=== PATIENT | male | born 1960 | race Two or more races ===

== ENCOUNTER → 2017-02-28 | Day surgery (SDC) | payer BC ==
[~2017-02-28] MED LIST: AZIT500T PO; DEXT30SU19 PO; IV RINGERS,LACTATED 1000ML 1,000 ML IV SCH; LIDOCAINE 2% PF Vial for OR 5 ML VIAL. ONE; PROPOFOL 20 ML IV ONE
--- NOTE | 2017-02-28 10:21 | PDOC1 ---
HISTORY & PHYSICAL H&P Fili Menard [id number] 1960 02/14/2017 04:20 PM 05/01 PROTEM Zentyal [facility], [facility] OUR PATIENTS COME FIRST [address] [place] [address] Ph. [phone] Patient: Fili Menard Date of : 1960 Date: 02/14/2017 4:20 PM Visit Type: Consult This 56 year old male presents for Elevated liver chemistry and Screening colonoscopy. History of Present Illness: 1. Elevated liver chemistry Pertinent negatives include bleeding, joint pain, rash and weight loss. Additional information: Has significant issue with alcohol consumption. No prior hepatitis. No IV drug abuse. Takes Viagra at times.. 2. Screening colonoscopy No prior screening. Denies risk factors. Pertinent negatives include abdominal pain, change in bowel habits, change in stool caliber, constipation, decreased appetite, diarrhea, melena, nausea, rectal bleeding, vomiting, weight gain and weight loss. Additional information: No family history of colon cancer , No family history of Crohn's/colitis, No NSAID/ASA use and Never had prior colonoscopy. INTAKE COMMENTS: Intake Comments: Nurse Note: the pt is here today due to elevated LFT's and for a screening colonoscopy. PROBLEM LIST: No active problems PAST MEDICAL/SURGICAL HISTORY (Detailed) Disease/disorder Onset Date Management Date Comments knee surgery 2012 PCL, ACL surgery Allergies: Ingredient Reaction Medication Name Comment PENICILLINS Red eyes REVIEW OF SYSTEMS System Neg/Pos Details Constitutional Negative Chills, fever, malaise, weight gain and weight loss. ENMT Negative Sore throat. Eyes Negative Double vision. Respiratory Negative Dyspnea and wheezing. Cardio Negative Chest pain and irregular heartbeat/palpitations. GI Positive See HPI. GI Negative Abdominal pain, change in bowel habits, change in stool caliber, constipation, decreased appetite, diarrhea, melena, nausea, see HPI, rectal bleeding and vomiting. Negative Dysuria and hematuria. Endocrine Negative Cold intolerance and heat intolerance. Psych Negative Anxiety. Integumentary Negative Hives and rash. MS Negative Joint pain. Neel/Lymph Negative Easy bleeding and easy bruising. Allergic/Immuno Negative Food allergies. VITAL SIGNS Time BP mm/Hg Pulse /min Resp /min Temp F Ht ft Ht in Ht cm Wt lb Wt kg BMI kg/ m2 BSA m2 O2 Sat% 4:21 PM 108/82 84 97.6 5.0 7.50 171.45 222.40 100.879 34.32 98 Time Measured by 4:21 PM Davina Thomas PHYSICAL EXAM: Exam Findings Details Constitutional Normal Well developed. Eyes Normal Conjunctiva - Right: Normal, Left: Normal. Sclera - Right: Normal, Left: Normal. Nasopharynx Normal Lips/teeth/gums - Normal. Neck Exam Normal Inspection - Normal. Thyroid gland - Normal. Respiratory Normal Inspection - Normal. Auscultation - Normal. Cardiovascular Normal Regular rate and rhythm. No murmurs, gallops, or rubs. Vascular Normal Pulses - Carotids: Normal, Femoral: Normal, Dorsalis pedis: Normal. Abdomen Normal Inspection - Normal. Anterior palpation - No guarding. No abdominal tenderness. No hepatic enlargement. No splenic enlargement. No hernia. No ascites. Skin Normal Inspection - Normal. Extremity Normal No edema. Psychiatric * Oriented to time, place, person and situation. Psychiatric Normal Appropriate mood and effect. The patient was checked out at 5:00 PM by Daisy Cruz. Assessment/Plan # Detail Type Description 1. Assessment Abnormal results of liver function studies (R94.5). Patient Plan Abdominal sonogram. QING,AMA,ASA, Ceruloplasmin, Hepatitis profile, iron and % saturation. Plan Orders AMA/ Antimitochondrial Ab, QING Comprehensive today, ASA/ Smooth Muscle Ab today, Ceruloplasmin today, Hepatitis Profile Acute today and Iron And Iron Binding Capacity to be performed today. Further diagnostic evaluations ordered today include(s) Abdomen Ultrasound; Limited (e.g., single organ, quadrant, follow-up) to be performed today. 2. Assessment Encounter for screening colonoscopy (Z12.11). Patient Plan schedule colonoscopy Plan Orders Further diagnostic evaluations ordered today include(s) Colonoscopy to be performed today. He is to schedule a follow-up visit with Jean Carlos Crouch MD upon completion of work-up Electronically signed by: Jean Carlos Crouch MD 02/14/2017 05:02 PM Document generated by: Jean Carlos Crouch 02/14/2017 05:02 PM Rose Marie Youssef MD, Family Practice; Daniel Ghosh MD Internal Medicine; Rolando Winters MD, Internal Medicine; Melvin Crouch MD Internal Medicine; Jean Carlos Crouch MD, Gastroenterology; Leodan Mujica MD, Rheumatology, S. Fitzgerald Romeo, Physical Medicine/Rehab Sujit Garrido APRN ------ 02/28/17 Patient seen and examined. No change in H&P JEAN CARLOS CROUCH MD Feb 28, 2017 10:21
[2017-02-28 11:36] VITALS: BP 113/70
== END | disposition home or self-care (01) ==
LOC: ENDOS 09:17
PROVIDERS: ATTEND Internal Medicine Gastroenterology
DX: Z12.11 Encounter for screening for malignant neoplasm of colon (principal); K57.30 Diverticulosis of large intestine without perforation or abscess without bleeding; Z88.0 Allergy status to penicillin
CPT/HCPCS: 45378; J2704; J2001

== ENCOUNTER → 2019-01-11 | Outpatient (CLI) | payer BC ==
[2017-02-28 11:36] VITALS: BP 113/70
[~2019-01-11] MED LIST changes: -IV RINGERS,LACTATED 1000ML 1,000 ML IV SCH; -LIDOCAINE 2% PF Vial for OR 5 ML VIAL. ONE; -PROPOFOL 20 ML IV ONE
--- NOTE | 2019-01-11 15:38 | KCIC ---
ABDOMEN LTD History: Fatty liver, alcoholic Comparison: None. Findings: Multiple sonographic images of the abdomen are submitted. There is no abnormality of the visualized pancreas. There is diffuse coarsening of the hepatic echotexture. Right lobe of liver measured 17 cm longitudinal. Gallbladder is present without intraluminal abnormality, wall thickening, pericholecystic fluid. Common bile duct is within normal limits at 0.3 cm. Right kidney measured 11.6 x 6 x 5.2 cm, no hydronephrosis. Abdominal aortic caliber is within normal limits up to 2.5 cm. Impression: 1. There is diffuse coarsening of hepatic echotexture, most commonly due to steatosis. No other significant abnormality is demonstrated. Electronically signed by: Evan Cruz MD (01/11/2019 3:36 PM) [facility]
== END | disposition home or self-care (01) ==
LOC: KCIC US 08:40
PROVIDERS: ATTEND Internal Medicine
DX: K70.0 Alcoholic fatty liver (principal)
CPT/HCPCS: 76705

== ENCOUNTER → 2019-12-12 | Outpatient (CLI) | payer BC ==
[2017-02-28 11:36] VITALS: BP 113/70
--- NOTE | 2019-12-13 07:23 | RAD ---
MR#: [id number] Date of Study: 12/12/2019 Ordering Physician: ALEX BARILLAS, Referring Physician: SARA CRABTREE Tech: RT Gabriella (R) (N) APPROVED REPORT Test Type: Exercise Stress Nurse/Tech: Monae Saravia RN Test Indications: Chest/left ribcage area pain in the past Cardiac History: No known cardiac Medications: See Electronic Medical Record Medical History: See Electronic Medical Record Resting ECG: SR Resting Heart Rate: 66 bpm Resting Blood Pressure: 125/79mmHg Pretest Chest Pain: No chest pain Nurse/Tech Notes S1,S2 and lungs are clear to auscultation. Consent: The procedure was explained to the patient in lay terms. Informed consent was witnessed. Tonny eout was entered into [employer]. History and Stress Test performed by SHAHNAZ Murray, ARRT (R) (N) Stress Symptoms No chest pain or symptoms. POST EXERCISE Reason for Termination: Reached target heart rate Target HR: Yes Max HR: 201 bpm 144% of Maximum Predicted HR: 139 bpm Exercise duration: 7:40 min:sec, 3 Stage Exercise capacity: 10METs Max Blood Pressure: 149/86mmHg Blood Pressure response to exercise: Normal blood pressure response during stress. Heart Rate response to exercise: WNL Chest Pain: No. Arrhythmia: No. ST Change: No. INTERPRETATION Stress EKG Conclusion: Technically limited EKG due to motion artifact, grossly no evidence of ischemi a. Imaging Protocol IMAGE PROTOCOL: Rest Tc-99m/stress Tc-99m 1 day Rest: Stress: Viability: Radiopharm.Tc99m XpedsliceEs17p Sestamibi Djim45qEh 32.1mCi Duration 13.5min. 13.5min. Img Date 12/12/2019 12/12/2019 Inj-Img [id number]. 60min. Rest Admin Site:IV - Right AntecubitalAdministrator:RT Gabriella (R)(N) Stress Admin Site: IV - Right AntecubitalAdministrator: RT Mihir (R)(N) STRESS DATA End Diast. Vol.124.0mlLVEDV index BSA58.0ml End Syst. Vol.38.0mlLVESV index BSA18.0ml Myocardial Tfje266.0gEject. Ytqbcild64.0% Stress Scores Regional WT0.00Summed WT0.00 Regional WM0.00Summed WM0.00 LV Perfusion normal perfusion at stress. Wall Motion Normal wall motion. LV Perf. Quant 17 Seg. SSS0.00 17 Seg. SRS7.00 17 Seg. SDS0.00 Stress Defect Extent (% LAD)0.00Rest Defect Extent (% LAD)7.50Rev. Defect Extent (% LAD)0.00 Stress Defect Extent (% LCX) 0.00Rest Defect Extent (% LCX)6.30Rev. Defect Extent (% LCX)0.00 Stress Defect Extent (% RCA)0.00Rest Defect Extent (% RCA)32.20Rev. Defect Extent (% RCA)0.00 Stress Defect Extent (% MASOOD)0.00Rest Defect Extent (% MASOOD)13.50Rev. Defect Extent (% MASOOD)0.00 Other Information Quality:Fair Risk Assessment: Low Risk Conclusion 1. No obvious ischemic changes noted on stress EKG. Limited EKG due to significant motion artifact. 2. Normal perfusion at stress. 3. Rest images are non-diagnostic. 4. Normal EF at > 60% 5. Low risk study overall within the above limits. Signed by : Alonzo Ramsey, Electronically Approved : 12/13/2019 07:23:06
== END | disposition home or self-care (01) ==
LOC: NM 08:44
PROVIDERS: ATTEND Internal Medicine Cardiovascular Disease
DX: R07.89 Other chest pain (principal)
CPT/HCPCS: 78452; 93017; A9500

== ENCOUNTER → 2020-08-17 | Outpatient (CLI) | payer BC ==
[2017-02-28 11:36] VITALS: BP 113/70
--- NOTE | 2020-08-17 16:27 | KCIC ---
EXAM: Chest, 2 views. HISTORY: Shortness of air. COMPARISON: None. FINDINGS: 2 views of the chest are obtained. There is no infiltrate, pleural effusion or pneumothorax . The heart is normal in size. There are small faint nodular opacities overlying both lower lungs due to nipple shadows. IMPRESSION: No acute pulmonary finding. Electronically signed by: Dot Johnson MD (08/17/2020 4:25 PM) [id number]
== END ==
LOC: KCIC 16:06
PROVIDERS: ATTEND Internal Medicine
DX: R91.8 Other nonspecific abnormal finding of lung field (principal); R06.02 Shortness of breath
CPT/HCPCS: 71046

== ENCOUNTER → 2021-01-06 | Outpatient (CLI) | payer BC ==
[2017-02-28 11:36] VITALS: BP 113/70
--- NOTE | 2021-01-06 17:02 | KCIC ---
EXAMINATION: Magnetic resonance imaging (MRI) of the brain and brainstem without contrast 01/06/2021 3: 45 PM HISTORY: Intractable chronic posterior metastatic headache. Blurry vision. TECHNIQUE: Multiplanar multi-weighted MRI of the brain and brainstem was performed without intravenou s contrast using the general brain protocol. COMPARISON: None available. FINDINGS: Evaluation degraded by motion artifact. The scalp and calvarium are normal. The superior sagittal sinus demonstrates normal venous flow. The corpus callosum is normal in shape and signal intensity. The posterior fossa is unremarkable. The p ituitary and sella are normal. The brainstem and craniocervical junction are unremarkable. Diffusion weighted images reveal no hyperintensities to suggest acute cerebral infarction. The suscep tibility weighted sequences reveal no evidence of acute or chronic hemorrhage. Ventricles, sulci and basal cisterns are normal in appearance. The paranasal sinuses are normal. The visualized portions of the mastoids are unremarkable. The orbi ts appear normal. Normal flow voids are demonstrated in the carotid arteries and basilar artery. IMPRESSION: No evidence for acute or subacute ischemia. No suspicious intracranial abnormality. Electronically signed by: Marta Pretty MD (01/06/2021 5:00 PM) [id number]
== END ==
LOC: KCIC MRI 15:22
PROVIDERS: ATTEND Nurse Practitioner Family
DX: S09.90XS Unspecified injury of head, sequela (principal); G44.321 Chronic post-traumatic headache, intractable; H53.8 Other visual disturbances; X58.XXXS Exposure to other specified factors, sequela
CPT/HCPCS: 70551